=== PATIENT | male | born 1985 | race Two or more races ===

== ENCOUNTER 2017-01-16 19:19 | Emergency (ER) | payer SELFPAY ==
[2017-01-16 19:27] VITALS: BP 148/79; PULSE 92; RESP 16; TEMP 99.9; O2SAT 93
[2017-01-16] MEDS ORDERED: PROPARACAINE 0.5% 15 ML OPHT DROP ONE (19:31)
[2017-01-16] MEDS ORDERED: FLUORESCEIN SODIUM 1 MG STRIP OP ONE (19:31)
[2017-01-16] MEDS ORDERED: OFLOXACIN 0.3% SOLN PREPACK OPHT.BTL TAKEHOME ONE (20:03)
--- NOTE | 2017-01-16 20:05 | EDPHY ---
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 Patient complains of 2-3 days ago waking up with discharge in his right eye and noticed that "the white part was red." Today the redness spread to his left eye. complains of itchiness. He denies any concern for foreign body. 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 Does not wear contact lenses. Modifying Factors: Comment: ROS: See HPI Constitutional: No fever, no chills, no weight loss Eyes: No blurred vision Respiratory: No shortness of breath, no cough Cardiovascular: No chest pain Gastrointestinal: No nausea, no vomiting no diarrhea Genitourinary: No dysuria Extremities: No myalgias Neurologic: No weakness, no numbness Skin: No rashes Hematologic: No bruising, no bleeding General: Well-appearing overweight male, awake and alert, nontoxic in appearance Visual Acuity: noted from Nurse's notes. No significant abnormality. Pupils: equal round and reactive to light. EOMI. Lids: no edema or swelling Skin: no proptosis, no periorbital erythema or swelling, no vesicles Conjunctivae: + bilateral injection, yellowish discharge collected in bilateral medial canthus Cornea: exam with fluorescein shows no uptake; vesicles/ulcerations/abrasions Anterior chamber: normal, no hyphema or hypopyon Smoking Status: Never smoked Constitutional: Initial Vital Signs Temperature (C) 37.7 C 01/16/17 19:24 Heart Rate 92 01/16/17 19:24 Respiratory Rate 16 01/16/17 19:24 Blood Pressure 148/79 H 01/16/17 19:24 O2 Sat (%) 93 01/16/17 19:24 O2 Delivery Mode Room Air Allergies/Adverse Reactions: No Known Allergies Allergy (Unverified 06/02/10 09:33) Home Medications: Medication Instructions Recorded NK [No Known Home Meds] 01/16/17 Medical Decision Making ED Course/Re-evaluation: Visual acuity noted and is within normal limits. Given ofloxacin drops in the ER and a prescription to take home. Differential Diagnosis: Differential diagnosis includes conjunctivitis, iritis, uveitis, glaucoma, corneal abrasion, herpes zoster ophthalmicus, - Data Points Medications Given: Discontinued Medications Ofloxacin (Ocuflox 0.3% Opht Drops Prepack) 1 btl TAKEHOME EDNOW ONE Stop: 01/16/17 20:04 Last Admin: 01/16/17 20:17 Dose: 1 btl Departure - Departure Disposition: Home, Routine, Self-Care Clinical Impression: Bacterial conjunctivitis of both eyes Condition: Good Instructions: Ofloxacin (Into the eye), Conjunctivitis (ED) Additional Instructions: If symptoms do not start to improve over the next 48 hours or rapidly worsen, please follow up with Ophthalmology. Take all eyedrops as directed. Please wash pillow cases and avoid itching eyes. You may apply cool compresses to soothe the irritation. - Si lo sintomas no empiezan a mejorar en las proximas 48 horas, o si rapidamente empeora, lidia seguimiento con el Oftalmologo. - Pulcifer todas las gotas para los ojos a christina se le cedeno indicado. - Por favor lave las fundas de martha almohadas y evite la comezon de los ojos. - Puede aplicar compresiones frescas para mejorar la irritacion. Referrals: [facility] [Other] - As per Instructions Chel Allen MD [Medical Doctor] - As per Instructions
== END 2017-01-16 20:21 | disposition home or self-care (01) ==
DX: H10.9 Unspecified conjunctivitis (principal)